=== PATIENT | male | born 1950 | race African-American/Black ===

== ENCOUNTER 2019-10-11 09:20 | Outpatient (CLI) | payer MEDICARE, SELFPAY ==
--- NOTE | ~2019-10-11 | XR_ITS ---
XR finger 3rd LT min 2V 10/11/2019 10:20 INDICATION: Arthritis of the left middle finger PROCEDURE: 4 views left third finger COMPARISON: No prior studies for comparison. FINDINGS: Fracture, dislocation or subluxation is not identified. Osteopenia The soft tissues appear within normal limits. No foreign bodies are identified. IMPRESSION: 1: NO ACUTE BONE OR JOINT ABNORMALITY IDENTIFIED. Reviewed, dictated and finalized at location A.
== END 2019-10-11 09:21 | disposition home or self-care (01) ==
PROVIDERS: PCP Internal Medicine; Visit Provider Plastic Surgery
DX: M19.042 Primary osteoarthritis, left hand (principal)
CPT/HCPCS: 73140

== ENCOUNTER 2020-04-21 06:39 | Outpatient (NON) | payer MEDICARE, SELFPAY ==
[2020-04-21 23:55] LABS: SARS-CoV-2 RNA PCR Negative
== END 2020-04-21 06:40 ==
LOC: ANHCOVIDDT 07:15
PROVIDERS: PCP Internal Medicine; Visit Provider Internal Medicine
DX: Z20.828 Contact with and (suspected) exposure to other viral communicable diseases (principal); R68.89 Other general symptoms and signs
CPT/HCPCS: 87635; C9803; U0003

== ENCOUNTER → 2020-10-08 02:20 | Outpatient (CLI) | payer MEDICARE, SELFPAY ==
[2020-10-08 19:11] LABS: SARS-CoV-2 RNA PCR Negative
== END ==
PROVIDERS: PCP Internal Medicine; Visit Provider Internal Medicine Critical Care Medicine
DX: Z01.812 Encounter for preprocedural laboratory examination (principal); Z20.822 Contact with and (suspected) exposure to COVID-19
CPT/HCPCS: C9803; U0003; U0005

== ENCOUNTER 2020-10-11 08:51 | Outpatient (CLI) | payer MEDICARE, SELFPAY ==
--- NOTE | 2020-10-22 12:38 | WPDSLEEPSTUD ---
Sleep Study Ordering Provider: Mook Fernandez DO Interpreting Physician: Antoinette Gray MD Sleep Study Type: CPAP Titration Height: 1.8 m Weight: 127.006 kg Body Mass Index: 39.0 Neck Circumference (inches): 17 [place]: 7 Reason for Sleep Study 08/24/2020 digital polysomnogram using [employer] PSG with [employer] software as part of a research study. Apnea-hypopnea index 22.4 using the 4% drop in saturation, desaturation to 84%, 50 minutes spent with a saturation below 90%, frequent periodic limb movements 61 per hour with limb movement arousal index of 12.5. He presents for a CPAP titration. Sleep History Anali Berrios is a 71 year old man who had a nocturnal polysomnogram on August 24, 2020 as part of a research study. He had positive results and was referred for a CPAP titration. No sleep questionnaire was available for review. His med list suggests that he has hypertension, diabetes, and hyperlipidemia. [facility] Past Medical History Medical History (Updated 09/24/20 @ 15:35 by Mook Fernandez DO) Skin lesion of left leg Trigger finger of left hand Surgical History Surgical History (Updated 08/05/19 @ 08:02 by Tammy Ledezma CMA) Hx of knee surgery Family History Family History Other Hypertension Malignant neoplasm of prostate Social History Social History Smoking status: Former smoker Second hand tobacco smoke exposure: No Smoking end date: 06/11/89 Alcohol intake: current Medications Home Medications Medication Instructions Recorded Confirmed Type amlodipine 10 mg tablet See Rx Instructions .ROUTE 02/23/20 08/19/20 Rx .COMPLEX #90 tablet atorvastatin 10 mg tablet See Rx Instructions .ROUTE 02/23/20 08/19/20 Rx .COMPLEX #90 tablet escitalopram oxalate 10 mg tablet See Rx Instructions .ROUTE 02/23/20 08/19/20 Rx .COMPLEX #90 tablet omeprazole 20 mg capsule,delayed See Rx Instructions .ROUTE 02/23/20 08/19/20 Rx release .COMPLEX #180 cap trandolapril 4 mg tablet See Rx Instructions .ROUTE 02/23/20 08/19/20 Rx .COMPLEX #90 tablet metformin 500 mg tablet 500 mg PO BID #180 tablet 08/19/20 08/19/20 Rx Sleep Procedure This test was performed using the [employer] multiple channel system including EOG, EEG, submental EMG, EKG, nasal and oral airflow using thermistors and nasal pressure sensors, chest and abdominal belts for body position data, and pulse oximetry. Video monitoring was also performed. The study was scored using CMS guidelines. The patient was started on CPAP using a large AirFit F 20 full face mask and heated humidifier. The initial pressure was 5 cm, increased due to air hunger. The patient was titrated on pressures including 7 cm, 8 cm, 9 cm, 10 cm, 11 cm, 12 cm and 12 cm with 3 of EPR. At the final pressure 12 cm with 3 EPR, He spent 47 minutes in bed, 18 minutes in REM, 24 minutes in non-REM. He had 2 hypopneas. The AHI was 2.8. Minimum saturation 88%. Sleep efficiency was 93%. He did not have supine REM at that pressure but it did appear to be excellent consolidated sleep with elimination of events. Sleep Architecture The recording time is 466 minutes. The sleep time is 347.5 minutes. The sleep efficiency is 74.6%. Sleep latency is 22.4 minutes. REM latency 81.5 minutes. He had 33 awakenings and spent 21.7% of the study awake after sleep onset, 96.1 minutes. Sleep architecture showed 3.5% stage 1 sleep, 44% stage 2 sleep, absence of stage 3 sleep and 30.9% stage REM consistent with REM rebound. He had only 4% of the baseline spent in REM. He spent 32.9% of this titration in the supine position. The remainder was nonsupine. The patient had improvement in sleep fragmentation towards the end of the study. Respiratory Analysis The apnea-hypopnea index is 1.6. He has 4 obstructive hypopneas in supine REM with a supine REM index of 2.3,
[2020-10-22 12:55] VITALS: BMI 39.0
== END 2020-10-11 08:52 | disposition home or self-care (01) ==
LOC: ANHCSM 08:51
PROVIDERS: PCP Internal Medicine; Visit Provider Internal Medicine
DX: G47.33 Obstructive sleep apnea (adult) (pediatric) (principal)
CPT/HCPCS: 95811

== ENCOUNTER → 2020-11-19 06:35 | Outpatient (CLI) | payer MEDICARE, SELFPAY ==
[2020-11-19 19:50] LABS: SARS-CoV-2 RNA PCR Negative
== END ==
PROVIDERS: PCP Internal Medicine; Visit Provider Internal Medicine
DX: Z20.822 Contact with and (suspected) exposure to COVID-19 (principal); R68.89 Other general symptoms and signs
CPT/HCPCS: C9803; U0003; U0005

== ENCOUNTER 2021-10-17 06:55 | Outpatient (CLI) | payer MEDICARE, SELFPAY ==
--- NOTE | ~2021-10-17 | CT_ITS ---
EXAMINATION: CT abdomen pelvis w con DATE: 10/17/2021 07:44 INDICATION: Prostate cancer TECHNIQUE: Computed tomography (CT) of the abdomen and pelvis was performed with 100 CC Omnipaque 300 intravenous contrast. Automated exposure control and iterative reconstruction technique were employe d. Exam dose: 1528.56 mGy-cm total exam DLP. COMPARISON: None. FINDINGS: There is mild dependent right lower lobe atelectasis. Normal heart size. No pericardial or pleural effusion. Small sliding hiatal hernia. The liver, spleen, pancreas, adrenal glands are unremarkable. Approximately 1.3 and 1.6 cm right renal cysts and 1.6 cm left renal cyst. No urinary tract calculus or hydroureteronephrosis. Normal caliber and mild atherosclerotic calcification of the abdominal aorta. No intraperitoneal or r etroperitoneal or pelvic mass lesion or adenopathy or ascites. Status post prostatectomy. There is approximately 12 x 18 mm indeterminate soft tissue density at the prostate bed at the consulting business developer ior inferior aspect of the base of the bladder on the left. Recommend comparison with any prior CT ex aminations and correlation with PSA. The prostate bed is otherwise unremarkable. No pelvic mass lesio n or adenopathy is noted otherwise. The urinary bladder is unremarkable. Inflatable penile prosthetic device is noted, with fluid reservoir at the right lower anterior pelvic wall anterior to the rectus sheath. Small [place] fat containing umbilical hernia. There are numerous diverticula of sigmoid, descending and transverse colon. There is mild pericolic f at soft tissue stranding in the sigmoid area; mild sigmoid diverticulitis is not excluded. No abscess is identified. Normal appendix. No bowel obstruction or intraperitoneal free air. Degenerative spurring of the lower thoracic spine. No suspicious osteolytic or osteoblastic lesions are noted. IMPRESSION: Status post prostatectomy Asymmetric 12 x 18 mm indeterminate soft tissue density is noted in the prostate bed at the left post erior inferior aspect of the urinary bladder; comparison with prior CT examinations is recommended, a s well as correlation with PSA Small sliding hiatal hernia Normal appendix Diverticulosis of left and right colon Cannot exclude mild sigmoid diverticulitis Reviewed, dictated and finalized at Location A. Reviewed, dictated and finalized at location B. IMPRESSION: Status post prostatectomy Asymmetric 12 x 18 mm indeterminate soft tissue density is noted in the prostat e bed at the left posterior inferior aspect of the urinary bladder; comparison with prior CT examinations is recommended, as well as correlation with PSA Small sliding hiatal hernia Normal appendix Diverticulosis of left and right colon Cannot exclude mild sigmoid diverticulitis
--- NOTE | ~2021-10-17 | NM_ITS ---
EXAMINATION: NM bone scan whole body DATE: 10/17/2021 13:55 INDICATION: Prostate cancer TECHNIQUE: 26.4 mCi Tc-99m HDP was administered intravenously. Delayed whole-body scintigrams were o btained. 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 Vertebral pattern of joint centered uptake at the bilateral mid feet, bilateral carpi, bilateral acromioclavicular and right sternoclavicular joint s. Additional mild disc centered uptake at the left side of T7-T8 with corresponding mild degenerativ e endplate change at this location on the CT images. No other suspicious bone lesions to suggest meta static disease. IMPRESSION: 1. No evident osseous metastatic disease. Reviewed, dictated and finalized at location A.
[2021-10-17 07:35] LABS: Estimated Glomerular Filt Rate > 60
== END 2021-10-17 06:56 | disposition home or self-care (01) ==
PROVIDERS: PCP Internal Medicine; Visit Provider Urology
DX: C61 Malignant neoplasm of prostate (principal); Z90.79 Acquired absence of other genital organ(s); K44.9 Diaphragmatic hernia without obstruction or gangrene; K57.90 Diverticulosis of intestine, part unspecified, without perforation or abscess without bleeding
CPT/HCPCS: 74177; 78306; A9561; Q9967

== ENCOUNTER 2021-11-05 09:56 | Inpatient (IN) | payer MEDICARE, SELFPAY ==
[2021-11-05] VITALS (15 sets, daily range): BP systolic 127–156; BP diastolic 64–118; PULSE 88–101; RESP 18–22; TEMP 36.4–37.1; O2SAT 87–97
--- NOTE | ~2021-11-05 | XR_ITS ---
XR chest 2V DATE: 11/07/2021 10:43 INDICATION: Shortness of breath TECHNIQUE: AP and lateral views COMPARISON: 11/05/2021 portable AP chest FINDINGS: Heart size is borderline. Is aortic arch calcification and mild unfolding. No hilar or medi astinal enlargement. No pulmonary infiltrate or consolidation, pleural effusion or pulmonary vascular congestion or pneumo thorax. Diffuse osteopenia. IMPRESSION: Borderline heart size Aortic atherosclerosis No active pulmonary disease Reviewed, dictated and finalized at location A.
--- NOTE | ~2021-11-05 | XR_ITS ---
XR chest 1V portable DATE: 11/05/2021 10:22 INDICATION: Shortness of breath. Low oxygen saturation. Cough. History of hypertension. TECHNIQUE: Portable upright AP view on 11/05/2021 1019 hours COMPARISON: None FINDINGS: This is a limited single portable apical lordotic AP view. There is mild infiltrate or atelectasis in the left mid and lower lung zones and right lung base. Heart size is not optimally evaluated on AP projection because of magnification. There is aortic arch calcification. Osteopenia. IMPRESSION: Mild infiltrate or atelectasis in left mid and lower lung zones and right lung base Reviewed, dictated and finalized at location A.
--- NOTE | 2021-11-05 10:02 | ECG_ITS ---
Measurements Intervals [place] Rate: 84 P: 12 RI: 138 QRS: 31 QRSD: 94 T: 63 QT: 389 QTc: 460 Interpretive Statements SINUS RHYTHM WITH SINUS ARRHYTHMIA BASELINE ARTIFACT- I, II, III, AVR, AVL, AVF, V1-V6 NORMAL ECG Electronically Signed On 11-05-2021 15:58:40 CDT by Vivek Lopez D.O.
--- NOTE | 2021-11-05 10:15 | ED.SOB ---
HPI - SOB/Dyspnea General Chief Complaint: Shortness of Breath/Dyspnea Stated Complaint: dyspnea Time Seen by Provider: 11/05/21 10:04 History of Present Illness HPI Narrative: Patient is a 71-year-old male with a history of diabetes, high blood pressure, hyperlipidemia, here for evaluation of shortness of breath over the past 3 days. Patient states his symptoms began with a mild cough, loss of taste/smell, and congestion, which have progressed in severity over the past week. His has similar symptoms at home. States he woke up this morning feeling short of breath whenever he he was up and moving around, in addition to lightheadedness. He presented to an urgent care facility, was found to be hypoxic in the mid 80s, and was sent here for evaluation. His saturations improved after nebulizer treatment. Denies chest pain, leg swelling, abdominal pain, vomiting. Does note chills, denies fevers. Is vaccinated against COVID. Related Data Allergies Allergy/AdvReac Type Severity Reaction Status Date / Time No Known Allergies Allergy Verified 09/09/21 10:18 Review of Systems Review of Systems: Gen.: Denies fevers or chills Eyes: Denies eye pain or visual change ENT: Denies congestion Respiratory: Denies shortness of breath or cough CV: Denies chest pain or palpitations GI: Denies abdominal pain nausea, emesis or diarrhea denies burning, urgency, frequency or hematuria Musculoskeletal: Denies back pain or muscle pain Neuro: Denies numbness, tingling, weakness or focal weakness Skin: Denies rash Except as documented, all other systems reviewed and negative [facility] Past Medical History Medical History Skin lesion of left leg Trigger finger of left hand Surgical History Surgical History Hx of knee surgery Family History Family History Other Hypertension Malignant neoplasm of prostate Social History Social History (Updated 09/09/21 @ 10:20 by Katharina Cody) Smoking packs per day: 1 Smoking cigarettes per day: 20.0 Years smoked: 20 Smoking pack-years: 20.00 Smoking status: Former smoker Tobacco type: cigarettes Second hand tobacco smoke exposure: No Smoking end date: 06/11/89 Alcohol intake: former Substance use: never Substance use type: does not use Spiritual care concerns: No Exam Narrative: APPEARANCE: Patient receiving nebulizing treatment during exam. Head: normocephalic and atraumatic. EYES: PERRLA/EOMI, conjunctivae clear NOSE: Large amount of nasal drainage EARS: External ear normal in appearance THROAT: Oropharynx is clear. Mucous membranes are moist. NECK: Supple. No adenopathy, no masses. RESPIRATORY: Decreased breath sounds throughout. Airway patent, respirations nonlabored. No rales, rhonchi, wheezing. CARDIOVASCULAR: Regular rate and rhythm without murmurs, rubs, or gallops. ABDOMINAL: Normoactive bowel sounds. Soft, nontender, nondistended. No rebound tenderness or guarding. MUSCULOSKELETAL: Extremities are warm and well-perfused. Moves all extremities well. No edema. NEURO: Normal speech. No focal neurologic deficits. SKIN: Skin is warm and dry. No rashes. PSYCHIATRIC: Normal affect/mood. Course Course Emergency Course: Discussed case with hospitalist, who agrees with plan for admission. Vital Signs Vital signs: Vital Signs Temperature 98.1 F 11/05/21 09:58 Pulse Rate 98 11/05/21 09:58 Respiratory Rate 20 11/05/21 09:58 Blood Pressure 139/118 H 11/05/21 09:58 Pulse Oximetry 97 11/05/21 09:58 Temperature 98.7 F 11/05/21 14:00 Pulse Rate 101 H 11/05/21 16:32 Respiratory Rate 18 11/05/21 16:32 Blood Pressure 156/79 H 11/05/21 14:00 Pulse Oximetry 92 11/05/21 16:25 Oxygen Delivery Nasal Cannula 11/05/21 16:25 Oxygen Flow Rate 3 11/05/21
[2021-11-05 10:40] LABS: Hematocrit 36.4 % (42.0-52.0); Hemoglobin 11.7 g/dL (14.0-18.0); Mean Corpuscular HGB Conc 32.1 g/dl (32-36); Mean Corpuscular Hemoglobin 28.3 pg (26-34); Mean Corpuscular Volume 88.1 fl (80-100); Mean Platelet Volume 9.4 fl (7.4-10.4); Platelet Count Result 314 k/mm3 (150-375); Red Blood Count 4.13 M/mm3 (4.6-6.20); Red Cell Distribution Width 15.1 % (11.5-14.5); White Blood Count 9.1 K/mm3 (4.5-10.0)
[2021-11-05 10:46] LABS: Alanine Aminotransferase 22 U/L (6-50); Albumin Level 3.8 g/dL (3.5-5.1); Alkaline Phosphatase 108 U/L (38-126); Anion Gap 8 mmol/L (8-16); Aspartate Amino Transferase 24 U/L (17-59); Bilirubin,Total 0.5 mg/dL (0.2-1.3); Blood Urea Nitrogen 10 mg/dL (9-20); Calcium 8.6 mg/dL (8.4-10.2); Carbon Dioxide 31 mmol/L (22-30); Chloride 101 mmol/L (98-107); Estimated CRCL calculation 124 ml/min; Estimated Glomerular Filt Rate > 60; Glucose 160 mg/dL (65-110); Potassium 3.9 mmol/L (3.4-5.0); Sodium 140 mmol/L (137-145)
[2021-11-05 10:58] LABS: NT Pro B Type Natriuretic Pept 159 pg/mL (5-100); Troponin I < 0.012 ng/mL (0.000-0.034)
[2021-11-05 11:13] LABS: Band Neutrophils Percent 16 % (0-6); Lymphocytes Absolute Manual 1.72 K/mm3 (1.1-4.5); Monocytes Absolute Manual 1.54 K/mm3 (0.1-0.90); Monocytes Percent Manual 17 % (3-9); Neutrophils Absolute Manual 5.82 K/mm3 (1.3-6.7); Neutrophils Percent Manual 48 % (46-73); Platelet Estimate Adequate (Adequate); Total Cells Counted 100
[2021-11-05 11:25] LABS: Influenza A QL RT-PCR Negative (Negative); Influenza B QL RT-PCR Negative (Negative); SARS-CoV-2 RNA PCR Negative
[2021-11-05] MEDS: ALBUTEROL SULFATE NEB 2.5 MG/3 ML INH INHALATION (16:18)
[2021-11-05 16:26] LABS: Glucose Point of Care 143 mg/dl (65-105)
[2021-11-05] MEDS: ENOXAPARIN 40 MG/0.4 ML SYRINGE SUB-Q (17:53)
[2021-11-05] MEDS: TOBRAMYCIN SULFATE 0.3% OPHTH SOLN 5 ML 1 DROP EACH EYE ×2 (17:53→20:27)
[2021-11-05] MEDS: methylPREDNISolone SOD SUCC 125 MG VIAL 60 MG IV PUSH (17:53)
[2021-11-05] MEDS: ALBUTEROL SULFATE NEB 2.5 MG/0.5 ML INH ×2 (19:39→23:24)
--- NOTE | 2021-11-05 20:13 | PM.IMHP ---
H&P: HPI History of Present Illness Date/Time: Patient was placed observation status for expected length of stay less than 23 hours for management, will plan to re-evaluate tomorrow for improvement. 11/05/21 20:13 Chief Complaint: Shortness of breath Narrative: Mr. Berrios is a 69-year-old gentleman who presented emergency room via EMS with complaints of shortness of breath and cough. Patient states on Sunday of this week he had a slight sore throat he noticed a cough. Patient states that the sore throat did go away quite quickly, but the cough continued. Patient states at 1st he had no sputum production but then he began having a green sputum production. Patient states over the last few days he has had dyspnea on exertion with walking short distances. Patient states he is unsure if he had a fever at home, but he he did have episodes of sweating. Patient states he never actually checked his temperature. Patient denies any chest pain, lightheadedness, dizziness, syncopal, or near syncopal episodes. States this morning he felt even more short of breath and he went to an urgent care where they checked his vital signs and his O2 saturations were in 80s. Patient was then sent to the emergency room for further evaluation. Upon evaluation emergency room patient did receive 1 nebulizer treatment is saturations continued to be in 80s. Patient was then placed on oxygen at 3 L per nasal cannula. Patient's O2 saturations then did improve with oxygen. Patient underwent chest x-ray that shows mild infiltrate or atelectasis in the left mid and lower lung zones and right lung base. Patient has a known history of diabetes mellitus, hypertension, dyslipidemia, and acid reflux. Patient states he has been taking all medications at home without any difficulty. Review of Systems Review of Systems: A 12 point review of systems was completed patient all pertinent positive and negative per HPI the remainder are unremarkable. [facility]LY [facility] Past Medical History Medical History (Updated 11/05/21 @ 20:20 by Dolores Ayala APRN) Essential (primary) hypertension Hyperlipidemia, unspecified (02/02/15) Skin lesion of left leg Trigger finger of left hand Type 2 diabetes mellitus without complications Surgical History Surgical History Hx of knee surgery Family History Family History Other Hypertension Malignant neoplasm of prostate Social History Social History (Updated 09/09/21 @ 10:20 by Katharina Cody) Smoking packs per day: 1 Smoking cigarettes per day: 20.0 Years smoked: 20 Smoking pack-years: 20.00 Smoking status: Former smoker Tobacco type: cigarettes Second hand tobacco smoke exposure: No Smoking end date: 06/11/89 Alcohol intake: former Substance use: never Substance use type: does not use Spiritual care concerns: No Meds Home Medications and Allergies Home Medications Medication Instructions Recorded Confirmed Type tobramycin 0.3 % eye drops 1 drp EACH EYE Q4H #5 mL 05/16/21 11/05/21 Rx amlodipine 10 mg tablet See Rx Instructions .Route 08/29/21 11/05/21 Rx .COMPLEX #90 tabs atorvastatin 10 mg tablet See Rx Instructions .Route 08/29/21 11/05/21 Rx .COMPLEX #90 tabs escitalopram oxalate 10 mg tablet See Rx Instructions .Route 08/29/21 11/05/21 Rx .COMPLEX #90 tabs omeprazole 20 mg capsule,delayed See Rx Instructions .Route 08/29/21 11/05/21 Rx release .COMPLEX #180 caps tamsulosin 0.4 mg capsule (Flomax) 0.4 mg PO QHS #90 caps 08/29/21 11/05/21 Rx valsartan 160 mg tablet 160 mg PO DAILY #90 tabs 09/09/21 11/05/21 Rx metformin 1,000 mg tablet 1,000 mg PO BIDWMEAL #180 tabs 09/12/21 11/05/21 Rx Allergies Allergy/AdvReac Type Severity Reaction Status Date / Time No Known Allergies Allergy Verified 09/09/21 10:18 Vital Signs Vital Signs - 24 hr 11/05/21 09:
[2021-11-05] MEDS: PANTOPRAZOLE 40 MG TABLET PO (20:25)
[2021-11-05] MEDS: TAMSULOSIN HCL 0.4 MG CAPSULE PO (20:25)
[2021-11-05] MEDS: ACETAMINOPHEN 325 MG TABLET 650 MG PO (20:26)
[2021-11-05 20:52] LABS: Glucose Point of Care 170 mg/dl (65-105)
[2021-11-05] MEDS: traZODone HCL 25 MG TABLET PO (22:10)
[2021-11-06] VITALS (18 sets, daily range): BP systolic 130–151; BP diastolic 69–77; PULSE 79–112; RESP 16–26; TEMP 35.9–36.6; O2SAT 91–96
[2021-11-06] MEDS: TOBRAMYCIN SULFATE 0.3% OPHTH SOLN 5 ML 1 DROP EACH EYE ×6 (00:04→20:07)
[2021-11-06] MEDS: methylPREDNISolone SOD SUCC 125 MG VIAL 60 MG IV PUSH ×4 (00:04→17:34)
[2021-11-06] MEDS: ALBUTEROL SULFATE NEB 2.5 MG/3 ML INH INHALATION ×4 (03:33→17:04)
[2021-11-06 07:46] LABS: Glucose Point of Care 218 mg/dl (65-105)
[2021-11-06 08:35] LABS: Hematocrit 39.1 % (42.0-52.0); Hemoglobin 12.4 g/dL (14.0-18.0); Mean Corpuscular HGB Conc 31.7 g/dl (32-36); Mean Corpuscular Hemoglobin 27.9 pg (26-34); Mean Corpuscular Volume 87.9 fl (80-100); Mean Platelet Volume 9.7 fl (7.4-10.4); Platelet Count Result 366 k/mm3 (150-375); Red Blood Count 4.45 M/mm3 (4.6-6.20); Red Cell Distribution Width 15.2 % (11.5-14.5); White Blood Count 7.5 K/mm3 (4.5-10.0)
[2021-11-06] MEDS: ATORVASTATIN 10 MG TABLET BY MOUTH (08:42)
[2021-11-06] MEDS: ESCITALOPRAM OXALATE 10 MG TABLET BY MOUTH (08:42)
[2021-11-06] MEDS: amLODIPine BESYLATE 5 MG TABLET 10 MG BY MOUTH (08:42)
[2021-11-06] MEDS: VALSARTAN 160 MG TABLET PO (08:42)
[2021-11-06] MEDS: PANTOPRAZOLE 40 MG TABLET PO ×2 (08:42→20:06)
[2021-11-06] MEDS: INSULIN ASPART (*BKC) 100 UNITS/ML SUB-Q ×3 (08:43→16:40)
[2021-11-06 08:45] LABS: Alanine Aminotransferase 25 U/L (6-50); Albumin Level 3.8 g/dL (3.5-5.1); Alkaline Phosphatase 146 U/L (38-126); Anion Gap 10 mmol/L (8-16); Aspartate Amino Transferase 21 U/L (17-59); Bilirubin,Total 0.4 mg/dL (0.2-1.3); Blood Urea Nitrogen 13 mg/dL (9-20); Calcium 8.8 mg/dL (8.4-10.2); Carbon Dioxide 29 mmol/L (22-30); Chloride 102 mmol/L (98-107); Estimated CRCL calculation 124 ml/min; Estimated Glomerular Filt Rate > 60; Glucose 238 mg/dL (65-110); Magnesium 2.4 mg/dL (1.6-2.3); Sodium 141 mmol/L (137-145)
--- NOTE | 2021-11-06 09:30 | PM.IMPN ---
Progress Note: A&P Assessment and Plan (1) Pneumonia: Code(s): J18.9 - Pneumonia, unspecified organism Status: Acute Assessment and Plan: Complaints of shortness of breath Saturations noted to be in the 80s Supplement O2, wean to maintain saturations >90% Chest xray shows Mild infiltrate or atelectasis in left mid and lower lung zones and right lung base? Continue azithromycin and rocephin Neb treatments Solumedrol, decrease to 40mg IV Q12hr Chest xray in the am Sputum culture ordered (2) Essential (primary) hypertension: Code(s): I10 - Essential (primary) hypertension Status: Acute Assessment and Plan: Current BP 151/77 Continue home valsartan 160mg PO Daily, amlodipine 10mg PO Trend BP Adjust medications as indicated (3) Type 2 diabetes mellitus without complications: Code(s): E11.9 - Type 2 diabetes mellitus without complications Status: Acute Assessment and Plan: Glucose 238 A1c in the am Hold metformin for now insulin sliding scale Hypoglycemic protocol Accu-cheks AC/HS trend glucose adjust therapy as indicated (4) BPH (benign prostatic hyperplasia): Code(s): N40.0 - Benign prostatic hyperplasia without lower urinary tract symptoms Status: Acute Assessment and Plan: PSA is 9.7 from 10/04/21 Continue tamsulosin Trend urine output Bladder scan PRN Time Spent With Patient Time with patient: Greater than 35 minutes Subjective Date/time seen: 11/06/21 09:30 Interval history: 11/06/21 0930 Patient was lying in bed. Patient is very congested and stated that he is still having shortness of breath especially when walking. He does have a cough which he is producing a green thick sputum. He denies any chest pain, nausea, vomiting, dizziness, weakness, fatigue. Patient stated that this all started with a cold. And his main concern is that he wants to be able to walk without being short of breath. He has been able to walk to the bathroom however he did become short of breath. Oxygen has been titrated down he is currently on 2 L nasal cannula. 11/05/21? 20:13 Mr. Berrios is a 69-year-old gentleman who presented emergency room via EMS with complaints of shortness of breath and cough.? Patient states on Sunday of this week he had a slight sore throat he noticed a cough.? Patient states that the sore throat did go away quite quickly, but the cough continued.? Patient states at 1st he had no sputum production but then he began having a green sputum production.? Patient states over the last few days he has had dyspnea on exertion with walking short distances.? Patient states he is unsure if he had a fever at home, but he he did have episodes of sweating.? Patient states he never actually checked his temperature.? Patient denies any chest pain, lightheadedness, dizziness, syncopal, or near syncopal episodes.? States this morning he felt even more short of breath and he went to an urgent care where they checked his vital signs and his O2 saturations were in 80s.? Patient was then sent to the emergency room for further evaluation.? Upon evaluation emergency room patient did receive 1 nebulizer treatment is saturations continued to be in 80s.? Patient was then placed on oxygen at 3 L per nasal cannula.? Patient's O2 saturations then did improve with oxygen.? Patient underwent chest x-ray that shows mild infiltrate or atelectasis in the left mid and lower lung zones and right lung base. Patient has a known history of diabetes mellitus, hypertension, dyslipidemia, and acid reflux.? Patient states he has been taking all medications at home without any difficulty. Review of Systems Review of Systems: All systems reviewed & are unremarkable except as noted in HPI and below Exam Const: General: cooperative, no acute distress, well developed, alert, awake, ill appearing and tired appearin
[2021-11-06 10:44] LABS: Band Neutrophils Percent 7 % (0-6); Lymphocytes Absolute Manual 1.27 K/mm3 (1.1-4.5); Monocytes Percent Manual 4 % (3-9); Neutrophils Absolute Manual 5.92 K/mm3 (1.3-6.7); Neutrophils Percent Manual 72 % (46-73); Platelet Estimate Adequate (Adequate); Total Cells Counted 100
[2021-11-06 11:37] LABS: Glucose Point of Care 232 mg/dl (65-105)
[2021-11-06 16:25] LABS: Glucose Point of Care 212 mg/dl (65-105)
[2021-11-06] MEDS: BENZOCAINE/MENTHOL (*BKC) 18 EA LOZENGE 1 LOZENGE PO ×2 (17:33→22:19)
[2021-11-06] MEDS: ENOXAPARIN 40 MG/0.4 ML SYRINGE SUB-Q (17:34)
[2021-11-06] MEDS: ALBUTEROL SULFATE NEB 2.5 MG/0.5 ML INH ×2 (19:48→23:05)
[2021-11-06] MEDS: TAMSULOSIN HCL 0.4 MG CAPSULE PO (20:06)
[2021-11-06] MEDS: traZODone HCL 25 MG TABLET PO (20:06)
[2021-11-06 20:57] LABS: Glucose Point of Care 282 mg/dl (65-105)
[2021-11-07] VITALS (17 sets, daily range): BP systolic 136–150; BP diastolic 60–75; PULSE 82–100; RESP 17–22; TEMP 36.2–36.8; O2SAT 93–97
[2021-11-07] MEDS: methylPREDNISolone SOD SUCC 125 MG VIAL 60 MG IV PUSH ×2 (00:02→05:11)
[2021-11-07] MEDS: TOBRAMYCIN SULFATE 0.3% OPHTH SOLN 5 ML 1 DROP EACH EYE ×6 (00:03→20:29)
[2021-11-07] MEDS: ACETAMINOPHEN 325 MG TABLET 650 MG PO ×2 (00:05→20:34)
[2021-11-07] MEDS: ALBUTEROL SULFATE NEB 2.5 MG/3 ML INH INHALATION ×5 (03:17→20:05)
[2021-11-07 05:03] LABS: Hematocrit 33.8 % (42.0-52.0); Hemoglobin 10.5 g/dL (14.0-18.0); Mean Corpuscular HGB Conc 31.1 g/dl (32-36); Mean Corpuscular Hemoglobin 27.6 pg (26-34); Mean Corpuscular Volume 88.9 fl (80-100); Mean Platelet Volume 9.5 fl (7.4-10.4); Platelet Count Result 358 k/mm3 (150-375); Red Cell Distribution Width 15.2 % (11.5-14.5); White Blood Count 11.7 K/mm3 (4.5-10.0)
[2021-11-07 05:14] LABS: Alanine Aminotransferase 23 U/L (6-50); Albumin Level 3.5 g/dL (3.5-5.1); Alkaline Phosphatase 118 U/L (38-126); Anion Gap 7 mmol/L (8-16); Aspartate Amino Transferase 21 U/L (17-59); Bilirubin,Total 0.2 mg/dL (0.2-1.3); Blood Urea Nitrogen 17 mg/dL (9-20); Calcium 8.4 mg/dL (8.4-10.2); Carbon Dioxide 31 mmol/L (22-30); Chloride 101 mmol/L (98-107); Estimated CRCL calculation 108 ml/min; Estimated Glomerular Filt Rate > 60; Glucose 294 mg/dL (65-110); Magnesium 2.2 mg/dL (1.6-2.3); Potassium 3.7 mmol/L (3.4-5.0); Sodium 139 mmol/L (137-145)
[2021-11-07 05:35] LABS: Anisocytosis 1+ (NORMAL); Band Neutrophils Percent 6 % (0-6); Hemoglobin A1C 6.7 % (<5.7); Lymphocytes Absolute Manual 1.28 K/mm3 (1.1-4.5); Monocytes Absolute Manual 0.81 K/mm3 (0.1-0.90); Monocytes Percent Manual 7 % (3-9); Neutrophils Absolute Manual 9.59 K/mm3 (1.3-6.7); Neutrophils Percent Manual 76 % (46-73); Ovalocytes 1+ (NORMAL); Platelet Estimate Adequate (Adequate); Total Cells Counted 100
[2021-11-07 07:28] LABS: Glucose Point of Care 238 mg/dl (65-105)
[2021-11-07] MEDS: ATORVASTATIN 10 MG TABLET BY MOUTH (08:04)
[2021-11-07] MEDS: amLODIPine BESYLATE 5 MG TABLET 10 MG BY MOUTH (08:04)
[2021-11-07] MEDS: VALSARTAN 160 MG TABLET PO (08:04)
[2021-11-07] MEDS: PANTOPRAZOLE 40 MG TABLET PO ×2 (08:04→20:29)
[2021-11-07] MEDS: AMOXICILLIN/CLAVULANATE K 875-125 MG TAB 1 TABLET PO ×2 (08:04→20:28)
[2021-11-07] MEDS: ESCITALOPRAM OXALATE 10 MG TABLET BY MOUTH (08:04)
[2021-11-07] MEDS: INSULIN ASPART (*BKC) 100 UNITS/ML SUB-Q ×2 (08:06→11:30)
--- NOTE | 2021-11-07 08:30 | PM.IMPN ---
Progress Note: A&P Assessment and Plan (1) Pneumonia: Code(s): J18.9 - Pneumonia, unspecified organism Status: Acute Assessment and Plan: Complaints of shortness of breath Saturations noted to be in the 80s Supplement O2, wean to maintain saturations >90% Chest xray shows Mild infiltrate or atelectasis in left mid and lower lung zones and right lung base? azithromycin and Rocephin, changed to PO amoxicillin/clauv Neb treatments Chest xray awaiting read Sputum culture did exhibit many white blood cells Guaifenesin and lozenges Also added some Claritin D for congestion (2) Essential (primary) hypertension: Code(s): I10 - Essential (primary) hypertension Status: Acute Assessment and Plan: Current BP 150/60 Continue home valsartan 160mg PO Daily, amlodipine 10mg PO Trend BP Adjust medications as indicated (3) Type 2 diabetes mellitus without complications: Code(s): E11.9 - Type 2 diabetes mellitus without complications Status: Acute Assessment and Plan: Glucose 294 A1c in the am Hold metformin for now insulin sliding scale Hypoglycemic protocol Accu-cheks AC/HS trend glucose adjust therapy as indicated (4) BPH (benign prostatic hyperplasia): Code(s): N40.0 - Benign prostatic hyperplasia without lower urinary tract symptoms Status: Acute Assessment and Plan: PSA is 9.7 from 10/04/21 Continue tamsulosin Trend urine output Bladder scan PRN Time Spent With Patient Time with patient: Greater than 35 minutes Subjective Date/time seen: 11/07/21829 Interval history: 11/07/21829 Patient was doing ok. Still on one liter of oxygen. He did state concern about not getting better. He did state that she is still getting short of breath with activity. He does seem to have 1+ pitting edema in the bilateral lower extremities. He denies any chest pain, weakness, fatigue, headache, or urinary difficulties. He does still have a cough, and is still very congested. 11/06/21929 Patient was lying in bed. Patient is very congested and stated that he is still having shortness of breath especially when walking. He does have a cough which he is producing a green thick sputum. He denies any chest pain, nausea, vomiting, dizziness, weakness, fatigue. Patient stated that this all started with a cold. And his main concern is that he wants to be able to walk without being short of breath. He has been able to walk to the bathroom however he did become short of breath. Oxygen has been titrated down he is currently on 2 L nasal cannula. 11/05/21? 20:13 Mr. Berrios is a 69-year-old gentleman who presented emergency room via EMS with complaints of shortness of breath and cough.? Patient states on Sunday of this week he had a slight sore throat he noticed a cough.? Patient states that the sore throat did go away quite quickly, but the cough continued.? Patient states at he had no sputum production but then he began having a green sputum production.? Patient states over the last few days he has had dyspnea on exertion with walking short distances.? Patient states he is unsure if he had a fever at home, but he he did have episodes of sweating.? Patient states he never actually checked his temperature.? Patient denies any chest pain, lightheadedness, dizziness, syncopal, or near syncopal episodes.? States this morning he felt even more short of breath and he went to an urgent care where they checked his vital signs and his O2 saturations were in 80s.? Patient was then sent to the emergency room for further evaluation.? Upon evaluation emergency room patient did receive 1 nebulizer treatment is saturations continued to be in 80s.? Patient was then placed on oxygen at 3 L per nasal cannula.? Patient's O2 saturations then did improve with oxygen.? Patient underwent chest x-ray that shows mild infiltr
[2021-11-07] MEDS: guaiFENesin 600 MG/DEXTROMETHORPHAN 30 MG SR TAB 12 HR 1 TAB PO ×2 (09:44→20:28)
[2021-11-07 11:29] LABS: Glucose Point of Care 229 mg/dl (65-105)
[2021-11-07] MEDS: LORATADINE/PSEUDOEPHEDRINE (*CRX) 10/240 MG TABLET ER 24 HR 1 TAB PO (12:08)
[2021-11-07] MEDS: FUROSEMIDE INJ 40 MG/4 ML VIAL 20 MG IV PUSH (13:25)
[2021-11-07 16:28] LABS: Glucose Point of Care 191 mg/dl (65-105)
[2021-11-07] MEDS: ENOXAPARIN 40 MG/0.4 ML SYRINGE SUB-Q (17:04)
[2021-11-07] MEDS: TAMSULOSIN HCL 0.4 MG CAPSULE PO (20:29)
[2021-11-07] MEDS: traZODone HCL 25 MG TABLET PO (20:29)
[2021-11-07] MEDS: BENZOCAINE/MENTHOL (*BKC) 18 EA LOZENGE 1 LOZENGE PO (20:31)
[2021-11-07 20:42] LABS: Glucose Point of Care 190 mg/dl (65-105)
[2021-11-08] VITALS (9 sets, daily range): BP systolic 130; BP diastolic 74; PULSE 75–84; RESP 18–20; TEMP 36.6; O2SAT 92–97
[2021-11-08] MEDS: ALBUTEROL SULFATE NEB 2.5 MG/0.5 ML INH (00:33)
[2021-11-08] MEDS: ALBUTEROL SULFATE NEB 2.5 MG/3 ML INH INHALATION ×3 (00:34→07:40)
[2021-11-08 05:55] LABS: Basophils Percent Auto 0.3 % (0.2-1.2); Eosinophils Absolute Auto 0.3 K/mm3 (0-0.3); Eosinophils Percent Auto 2.4 % (0-4.4); Hematocrit 35.4 % (42.0-52.0); Immature Granulocyte Absolute 0.25 K/mm3 (0.00-0.031); Immature Granulocyte Percent A 1.8 % (0-0.5); Lymphocytes Absolute Auto 2.72 K/mm3 (0.9-3.2); Lymphocytes Percent Auto 19.8 % (18.3-44.2); Mean Corpuscular HGB Conc 31.1 g/dl (32-36); Mean Corpuscular Hemoglobin 27.4 pg (26-34); Mean Corpuscular Volume 88.3 fl (80-100); Mean Platelet Volume 9.3 fl (7.4-10.4); Monocytes Absolute Auto 1.5 K/mm3 (0.1-0.6); Monocytes Percent Auto 10.9 % (2.6-8.5); Neutrophils Absolute Auto 8.9 K/mm3 (1.3-6.7); Neutrophils Percent Auto 64.8 % (45.5-73.1); Platelet Count Result 385 k/mm3 (150-375); Red Blood Count 4.01 M/mm3 (4.6-6.20); Red Cell Distribution Width 15.4 % (11.5-14.5); White Blood Count 13.7 K/mm3 (4.5-10.0)
[2021-11-08 06:11] LABS: Alanine Aminotransferase 23 U/L (6-50); Albumin Level 3.2 g/dL (3.5-5.1); Alkaline Phosphatase 99 U/L (38-126); Anion Gap 4 mmol/L (8-16); Aspartate Amino Transferase 27 U/L (17-59); Bilirubin,Total 0.3 mg/dL (0.2-1.3); Blood Urea Nitrogen 19 mg/dL (9-20); Carbon Dioxide 32 mmol/L (22-30); Chloride 101 mmol/L (98-107); Estimated CRCL calculation 124 ml/min; Estimated Glomerular Filt Rate > 60; Glucose 169 mg/dL (65-110); Magnesium 2.2 mg/dL (1.6-2.3); Potassium 3.7 mmol/L (3.4-5.0); Sodium 137 mmol/L (137-145)
[2021-11-08 06:37] LABS: Anisocytosis 1+ (NORMAL); Ovalocytes 1+ (NORMAL)
--- NOTE | 2021-11-08 07:10 | P.DS_ITS ---
DS: Admitting Diagnosis Discharge Date 11/08/21 1600 Admitting Diagnosis Shortness of breath. DS: Discharge Diagnosis Discharge Diagnosis (1) Pneumonia: Code(s): J18.9 - Pneumonia, unspecified organism Status: Acute Assessment and Plan: * WBC 13.7, patient is afebrile. * On PO amoxicillin/clauv, will add PO Azithromycin due to comorbidities. * Complaints of shortness of breath * Weaned off supplemental O2 at this time. * initial chest xray shows Mild infiltrate or atelectasis in left mid and lower lung zones and right lung base? * Neb treatments * 11/07 Chest xray showed no active pulmonary disease, borderline heart size, aortic atherosclerosis. * Sputum culture showed mixed bacterial dinh, many white blood cells. * Guaifenesin and lozenges * Also added some Claritin D for congestion (2) Essential (primary) hypertension: Code(s): I10 - Essential (primary) hypertension Status: Acute Assessment and Plan: * Current BP 150/61 * Continue home valsartan 160mg PO Daily, amlodipine 10mg PO * Trend BP * Adjust medications as indicated (3) Type 2 diabetes mellitus without complications: Code(s): E11.9 - Type 2 diabetes mellitus without complications Status: Acute Assessment and Plan: * Glucose 169 * A1c 6.7 * insulin sliding scale * Hypoglycemic protocol * Accu-cheks AC/HS * trend glucose * Discharge on home meds. (4) BPH (benign prostatic hyperplasia): Code(s): N40.0 - Benign prostatic hyperplasia without lower urinary tract symptoms Status: Acute Assessment and Plan: * PSA is 9.7 from 10/04/21 * Continue tamsulosin * Bladder scan PRN DS: Summary Hospital Course Reason for hospitalization: Pneumonia Hospital Course: See above for full hospital course Status at Discharge Cognitive/behavioral status at discharge: progressing to baseline Time Spent with Patient Time attestation: Total time spent providing and/or coordinating discharge services: 35 min Exam Narrative: Constitutional: Patient is well-nourished in no acute distress. Patient is alert and oriented x3 HEENT: Moist mucous membranes. No scleral icterus. No lymphadenopathy. Neck: No carotid bruits noted no JVD noted Lungs: Lungs are coarse to auscultation bilaterally with inspiratory and expiratory wheeze noted. Cardiovascular: Apical pulse is regular rate and rhythm. S1-S2 noted, no S3 or S4 noted. No gallops, murmurs, or rubs noted. Abdomen: Soft, round, and nontender. No palpable masses. Extremities: No edema. Nontender. Skin: No rashes or lesions. Warm and dry. Skin is intact. Neurological: No focal neurological deficits. Cranial nerves II-XII grossly intact. Psychiatric: Cooperative, appropriate mood, and affect DS: Data Data Completed and Pending Labs on day of discharge: Labs from last 24 hours 11/08/21 11/08/21 11/07/21 05:42 05:42 20:35 WBC 13.7 H RBC 4.01 L Hgb 11.0 L Hct 35.4 L MCV 88.3 MCH 27.4 MCHC 31.1 L RDW 15.4 H Plt Count 385 H MPV 9.3 Immature Gran % (Auto) 1.8 H Neut % (Auto) 64.8 Lymph % (Auto) 19.8 [place] % (Auto) 10.9 H Eos % (Auto) 2.4 Baso % (Auto) 0.3 Lymp
--- NOTE | 2021-11-08 07:10 | PM.DS ---
DS: Admitting Diagnosis Discharge Date 11/08/21 1600 Admitting Diagnosis Shortness of breath. DS: Discharge Diagnosis Discharge Diagnosis (1) Pneumonia: Code(s): J18.9 - Pneumonia, unspecified organism Status: Acute Assessment and Plan: WBC 13.7, patient is afebrile. On PO amoxicillin/clauv, will add PO Azithromycin due to comorbidities. Complaints of shortness of breath Weaned off supplemental O2 at this time. initial chest xray shows Mild infiltrate or atelectasis in left mid and lower lung zones and right lung base? Neb treatments 11/07 Chest xray showed no active pulmonary disease, borderline heart size, aortic atherosclerosis. Sputum culture showed mixed bacterial dinh, many white blood cells. Guaifenesin and lozenges Also added some Claritin D for congestion (2) Essential (primary) hypertension: Code(s): I10 - Essential (primary) hypertension Status: Acute Assessment and Plan: Current BP 150/61 Continue home valsartan 160mg PO Daily, amlodipine 10mg PO Trend BP Adjust medications as indicated (3) Type 2 diabetes mellitus without complications: Code(s): E11.9 - Type 2 diabetes mellitus without complications Status: Acute Assessment and Plan: Glucose 169 A1c 6.7 insulin sliding scale Hypoglycemic protocol Accu-cheks AC/HS trend glucose Discharge on home meds. (4) BPH (benign prostatic hyperplasia): Code(s): N40.0 - Benign prostatic hyperplasia without lower urinary tract symptoms Status: Acute Assessment and Plan: PSA is 9.7 from 10/04/21 Continue tamsulosin Bladder scan PRN DS: Summary Hospital Course Reason for hospitalization: Pneumonia Hospital Course: See above for full hospital course Status at Discharge Cognitive/behavioral status at discharge: progressing to baseline Time Spent with Patient Time attestation: Total time spent providing and/or coordinating discharge services: 35 min Exam Narrative: Constitutional: Patient is well-nourished in no acute distress. Patient is alert and oriented x3 HEENT: Moist mucous membranes. No scleral icterus. No lymphadenopathy. Neck: No carotid bruits noted no JVD noted Lungs: Lungs are coarse to auscultation bilaterally with inspiratory and expiratory wheeze noted. Cardiovascular: Apical pulse is regular rate and rhythm. S1-S2 noted, no S3 or S4 noted. No gallops, murmurs, or rubs noted. Abdomen: Soft, round, and nontender. No palpable masses. Extremities: No edema. Nontender. Skin: No rashes or lesions. Warm and dry. Skin is intact. Neurological: No focal neurological deficits. Cranial nerves II-XII grossly intact. Psychiatric: Cooperative, appropriate mood, and affect DS: Data Data Completed and Pending Labs on day of discharge: Labs from last 24 hours 11/08/21 11/08/21 11/07/21 05:42 05:42 20:35 WBC 13.7 H RBC 4.01 L Hgb 11.0 L Hct 35.4 L MCV 88.3 MCH 27.4 MCHC 31.1 L RDW 15.4 H Plt Count 385 H MPV 9.3 Immature Gran % (Auto) 1.8 H Neut % (Auto) 64.8 Lymph % (Auto) 19.8 [place] % (Auto) 10.9 H Eos % (Auto) 2.4 Baso % (Auto) 0.3 Lymph # (Auto) 2.72 [place] # (Auto) 1.5 H Eos # (Auto) 0.3 Baso # (Auto) 0.0 Abs Immat Gran (auto) 0.25 H Absolute Neuts (auto) 8.9 H Absolute Nucleated RBC 0.0 Nucleated RBC % 0.0 Platelet Estimate Slightly increased Anisocytosis 1+ Ovalocytes 1+ Sodium 137 Potassium 3.7 Chloride 101 Carbon Dioxide 32 H Anion Gap 4 L BUN 19 Creatinine 0.60 L Estim Creat Clear Calc 124 Estimated GFR > 60 Glucose 169 H POC Capillary Glucose 190 H Calcium 8.0 L Magnesium 2.2 Total Bilirubin 0.3 AST 27 ALT 23 Alkaline Phosphatase 99 Total Protein 7.0 Albumin 3.2 L 11/07/21 11/07/21 11/07/21 16:18 11:25 07:24 WBC R
--- NOTE | 2021-11-08 07:22 | PM.IMPN ---
Progress Note: A&P Assessment and Plan (1) Pneumonia: Code(s): J18.9 - Pneumonia, unspecified organism Status: Acute Assessment and Plan: WBC 13.7, increased from 11 yesterday, patient is afebrile. On PO amoxicillin/clauv, will add PO Azithromycin due to comorbidities. Complaints of shortness of breath Weaned off supplemental O2 at this time. initial chest xray shows Mild infiltrate or atelectasis in left mid and lower lung zones and right lung base? Neb treatments 11/07 Chest xray showed no active pulmonary disease, borderline heart size, aortic atherosclerosis. Sputum culture showed mixed bacterial dinh, many white blood cells. Guaifenesin and lozenges Also added some Claritin D for congestion (2) Essential (primary) hypertension: Code(s): I10 - Essential (primary) hypertension Status: Acute Assessment and Plan: Current BP 130/74 Continue home valsartan 160mg PO Daily, amlodipine 10mg PO Trend BP Adjust medications as indicated (3) Type 2 diabetes mellitus without complications: Code(s): E11.9 - Type 2 diabetes mellitus without complications Status: Acute Assessment and Plan: Glucose 169 A1c 6.7 insulin sliding scale Hypoglycemic protocol Accu-cheks AC/HS Trend glucose Discharge on home meds. (4) BPH (benign prostatic hyperplasia): Code(s): N40.0 - Benign prostatic hyperplasia without lower urinary tract symptoms Status: Acute Assessment and Plan: PSA is 9.7 from 10/04/21 Continue tamsulosin Bladder scan PRN Subjective Date/time seen: 11/08/21 07:22 Interval history: 11/06/21 0930 Patient was lying in bed. Patient is very congested and stated that he is still having shortness of breath especially when walking. He does have a cough which he is producing a green thick sputum. He denies any chest pain, nausea, vomiting, dizziness, weakness, fatigue. Patient stated that this all started with a cold. And his main concern is that he wants to be able to walk without being short of breath. He has been able to walk to the bathroom however he did become short of breath. Oxygen has been titrated down he is currently on 2 L nasal cannula. 11/05/21? 20:13 Mr. Berrios is a 69-year-old gentleman who presented emergency room via EMS with complaints of shortness of breath and cough.? Patient states on Sunday of this week he had a slight sore throat he noticed a cough.? Patient states that the sore throat did go away quite quickly, but the cough continued.? Patient states at 1st he had no sputum production but then he began having a green sputum production.? Patient states over the last few days he has had dyspnea on exertion with walking short distances.? Patient states he is unsure if he had a fever at home, but he he did have episodes of sweating.? Patient states he never actually checked his temperature.? Patient denies any chest pain, lightheadedness, dizziness, syncopal, or near syncopal episodes.? States this morning he felt even more short of breath and he went to an urgent care where they checked his vital signs and his O2 saturations were in 80s.? Patient was then sent to the emergency room for further evaluation.? Upon evaluation emergency room patient did receive 1 nebulizer treatment is saturations continued to be in 80s.? Patient was then placed on oxygen at 3 L per nasal cannula.? Patient's O2 saturations then did improve with oxygen.? Patient underwent chest x-ray that shows mild infiltrate or atelectasis in the left mid and lower lung zones and right lung base. Patient has a known history of diabetes mellitus, hypertension, dyslipidemia, and acid reflux.? Patient states he has been taking all medications at home without any difficulty. Exam Narrative: Constitutional: Patient is well-nourished in no acute distress. Patient is alert and oriented x3 HEENT: Moist mucous membrane
[2021-11-08 07:34] LABS: Glucose Point of Care 134 mg/dl (65-105)
[2021-11-08] MEDS: ESCITALOPRAM OXALATE 10 MG TABLET BY MOUTH (08:24)
[2021-11-08] MEDS: amLODIPine BESYLATE 5 MG TABLET 10 MG BY MOUTH (08:24)
[2021-11-08] MEDS: VALSARTAN 160 MG TABLET PO (08:24)
[2021-11-08] MEDS: AZITHROMYCIN 250 MG TABLET PO (08:24)
[2021-11-08] MEDS: AMOXICILLIN/CLAVULANATE K 875-125 MG TAB 1 TABLET PO (08:24)
[2021-11-08] MEDS: ATORVASTATIN 10 MG TABLET BY MOUTH (08:24)
[2021-11-08] MEDS: LORATADINE/PSEUDOEPHEDRINE (*CRX) 10/240 MG TABLET ER 24 HR 1 TAB PO (08:24)
[2021-11-08] MEDS: PANTOPRAZOLE 40 MG TABLET PO (08:24)
[2021-11-08] MEDS: TOBRAMYCIN SULFATE 0.3% OPHTH SOLN 5 ML 1 DROP EACH EYE (08:28)
[2021-11-08] MEDS: guaiFENesin 600 MG/DEXTROMETHORPHAN 30 MG SR TAB 12 HR 1 TAB PO (08:56)
[2021-11-08 11:11] LABS: Glucose Point of Care 104 mg/dl (65-105)
--- NOTE | 2021-11-08 11:36 | P.DS_ITS ---
DS: Admitting Diagnosis Discharge Date 11/08/21 1600 <Kiya Dunn PA-C - Last Filed: 11/08/21 11:53> Admitting Diagnosis Shortness of Breath <Kiya Dunn PA-C - Last Filed: 11/08/21 11:53> DS: Discharge Diagnosis Discharge Diagnosis (1) Pneumonia: Code(s): J18.9 - Pneumonia, unspecified organism <Kiya Dunn PA-C - Last Filed: 11/08/21 11:53> Status: Acute <Kiya Dunn PA-C - Last Filed: 11/08/21 11:53> Assessment and Plan: * WBC 13.7, increased from 11 yesterday, however, patient is afebrile, remains on room air, has improved shortness of breath, and remains clinically improved from yesterday. Patient is very eager to go home and states he is feeling much better. * On PO amoxicillin/clauv, will add PO Azithromycin due to comorbidities. * Initial chest xray shows Mild infiltrate or atelectasis in left mid and lower lung zones and right lung base? * 11/07 Chest xray showed no active pulmonary disease, borderline heart size, aortic atherosclerosis. * Sputum culture showed mixed bacterial dinh, many white blood cells. * Guaifenesin along with claritin D for congestion. <Kiya Dunn PA-C - Last Filed: 11/08/21 11:53> (2) Essential (primary) hypertension: Code(s): I10 - Essential (primary) hypertension <Kiya Dunn PA-C - Last Filed: 11/08/21 11:53> Status: Acute <Kiya Dunn PA-C - Last Filed: 11/08/21 11:53> Assessment and Plan: * Current BP 130/74 * Continue home valsartan 160mg PO Daily, amlodipine 10mg PO <Kiya Dunn PA-C - Last Filed: 11/08/21 11:53> (3) Type 2 diabetes mellitus without complications: Code(s): E11.9 - Type 2 diabetes mellitus without complications <Kiya Dunn PA-C - Last Filed: 11/08/21 11:53> Status: Acute <Kiya WallKIARA osborn - Last Filed: 11/08/21 11:53> Assessment and Plan: * Glucose 169 * A1c 6.7 * insulin sliding scale * Hypoglycemic protocol * Accu-cheks AC/HS * Trend glucose * Discharge on home meds. <Kiya WallKIARA osborn - Last Filed: 11/08/21 11:53> (4) BPH (benign prostatic hyperplasia): Code(s): N40.0 - Benign prostatic hyperplasia without lower urinary tract symptoms <Kiya WallKIARA osborn - Last Filed: 11/08/21 11:53> Status: Acute <Kiya Cano LINDA DunnPrakashJeromy - Last Filed: 11/08/21 11:53> Assessment and Plan: * PSA is 9.7 from 10/04/21 * Continue tamsulosin * Bladder scan PRN * Patient has no complaints today. <Kiya Cano KIARA Dunn - Last Filed: 11/08/21 11:53> DS: Summary Hospital Course Reason for hospitalization: Pneumonia <Kiya WallKIARA osborn - Last Filed: 11/08/21 11:53> Hospital Course: See above for full hospital course <Kiya Cano KIARA Dunn - Last Filed: 11/08/21 11:53> Status at Discharge Cognitive/behavioral status at discharge: Patient is progressing back to baseline <Kiya Cano KIARA Dunn - Last Filed: 11/08/21 11:53> Time Spent with Patient Time attestation: Total time spent providing and/or coordinating discharge services: 35 minutes <Kiya GaldamezJanell Dunn PA-C - Last Filed: 11/08/21 11:53> Exam Narrative: GENERAL APPEARANCE: Alert and oriented x 3, in no apparent distress. HEENT: PERRL, EOMI. Sclerae anicteric. Moist mucous membranes. NECK: Supple. No JVD or obvious carotid bruits. RESPIRATORY: Respirations are nonlabored. Scattered rhonchi and crackles in bilateral lower lungs. No wheezing.
--- NOTE | 2021-11-08 11:36 | PM.DS ---
DS: Admitting Diagnosis Discharge Date 11/08/21 1600 <Kiya Dunn PA-C - Last Filed: 11/08/21 11:53> Admitting Diagnosis Shortness of Breath <Kiya Dunn PA-C - Last Filed: 11/08/21 11:53> DS: Discharge Diagnosis Discharge Diagnosis (1) Pneumonia: Code(s): J18.9 - Pneumonia, unspecified organism <Kiya Dunn PA-C - Last Filed: 11/08/21 11:53> Status: Acute <Kiya Dunn PA-C - Last Filed: 11/08/21 11:53> Assessment and Plan: WBC 13.7, increased from 11 yesterday, however, patient is afebrile, remains on room air, has improved shortness of breath, and remains clinically improved from yesterday. Patient is very eager to go home and states he is feeling much better. On PO amoxicillin/clauv, will add PO Azithromycin due to comorbidities. Initial chest xray shows Mild infiltrate or atelectasis in left mid and lower lung zones and right lung base? 11/07 Chest xray showed no active pulmonary disease, borderline heart size, aortic atherosclerosis. Sputum culture showed mixed bacterial dinh, many white blood cells. Guaifenesin along with claritin D for congestion. <Kiya Dunn PA-C - Last Filed: 11/08/21 11:53> (2) Essential (primary) hypertension: Code(s): I10 - Essential (primary) hypertension <Kiya Dunn PA-C - Last Filed: 11/08/21 11:53> Status: Acute <Kiya Dunn PA-C - Last Filed: 11/08/21 11:53> Assessment and Plan: Current BP 130/74 Continue home valsartan 160mg PO Daily, amlodipine 10mg PO <Kiya Dunn PA-C - Last Filed: 11/08/21 11:53> (3) Type 2 diabetes mellitus without complications: Code(s): E11.9 - Type 2 diabetes mellitus without complications <Kiya Dunn PA-C - Last Filed: 11/08/21 11:53> Status: Acute <Kiya Dunn PA-C - Last Filed: 11/08/21 11:53> Assessment and Plan: Glucose 169 A1c 6.7 insulin sliding scale Hypoglycemic protocol Accu-cheks AC/HS Trend glucose Discharge on home meds. <Kiya Cano KIARA Dunn - Last Filed: 11/08/21 11:53> (4) BPH (benign prostatic hyperplasia): Code(s): N40.0 - Benign prostatic hyperplasia without lower urinary tract symptoms <Kiya Cano KIARA Dunn - Last Filed: 11/08/21 11:53> Status: Acute <Kiya Cano KIARA Dunn - Last Filed: 11/08/21 11:53> Assessment and Plan: PSA is 9.7 from 10/04/21 Continue tamsulosin Bladder scan PRN Patient has no complaints today. <iKya Cano KIARA Dunn - Last Filed: 11/08/21 11:53> DS: Summary Hospital Course Reason for hospitalization: Pneumonia <Kiya Cano KIARA Dunn - Last Filed: 11/08/21 11:53> Hospital Course: See above for full hospital course <Kiya Cano KIARA Dunn - Last Filed: 11/08/21 11:53> Status at Discharge Cognitive/behavioral status at discharge: Patient is progressing back to baseline <Kiya GaldamezJanell Dunn PA-C - Last Filed: 11/08/21 11:53> Time Spent with Patient Time attestation: Total time spent providing and/or coordinating discharge services: 35 minutes <Kiya GaldamezJanell Dunn PA-C - Last Filed: 11/08/21 11:53> Exam Narrative: GENERAL APPEARANCE: Alert and oriented x 3, in no apparent distress. HEENT: PERRL, EOMI. Sclerae anicteric. Moist mucous membranes. NECK: Supple. No JVD or obvious carotid bruits. RESPIRATORY: Respirations are nonlabored. Scattered rhonchi and crackles in bilateral lower lungs. No wheezing. CARDIOVASCULAR: Regular rate and rhythm with normal S1-S2. No murmurs, gallops, or rubs. GASTROINTESTINAL: Soft, flat, and benign. No mass, tenderness, guarding, or rebound. No organomegaly or hernia. Bowel sounds are present. SKIN: Warm, dry, well perfused. Good turgor. No lesions, nodules, or rashes noted. EXTREMITIES: No cyanosis, clubbing, or edema. Radial and pedal pulses intact. NEUROLOGICAL: Alert. Cranial nerves 2-12 are corey
== END 2021-11-08 12:48 | disposition home or self-care (01) | DRG 195 ==
LOC: ANHED 10:44 → ANH2MED 14:28
PROVIDERS: Nurse Practitioner; Physician Assistant; Admitting Provider Family Medicine; Emergency Provider Emergency Medicine; PCP Internal Medicine; Visit Provider Student in an Organized Health Care Education/Training Program
DX: J18.9 Pneumonia, unspecified organism (principal); E11.9 Type 2 diabetes mellitus without complications; I10 Essential (primary) hypertension; E78.5 Hyperlipidemia, unspecified; Z20.822 Contact with and (suspected) exposure to COVID-19; Z87.891 Personal history of nicotine dependence; K21.9 Gastro-esophageal reflux disease without esophagitis; Z79.84 Long term (current) use of oral hypoglycemic drugs; N40.0 Benign prostatic hyperplasia without lower urinary tract symptoms; Z79.4 Long term (current) use of insulin
CPT/HCPCS: 36415; 71045; 71046; 80053; 82948; 83036; 83735; 83880; 84484; 85025; 87070; 87205; 87502; 93005; 94640; 96365; 96366; 96367; 96375; 96376; 99285; A9270; C9803; G0378; J0456; J0696; J1650; J1815; J1940; J2930; U0003; U0005

== ENCOUNTER 2021-11-29 13:46 | Outpatient (CLI) | payer MEDICARE, SELFPAY ==
--- NOTE | ~2021-11-29 | PE_ITS ---
EXAMINATION: PET_PETPSMAST_PT DATE: 09/12/2021 17:18 INDICATION: Prostate cancer TECHNIQUE: 10.19 mCi of pipflufolastat F-18 (18-F-DCFPyL) was administered i.v. Low dose computed bib ography (CT) images were acquired from the base of the brain to the proximal thighs for attenuation c orrection and anatomic localization. Total DAP was 1369.2 mGycm Positron emission tomography (PET) im ages were acquired in the same distribution beginning 71 minutes after injection. COMPARISON: None FINDINGS: Head/neck: Typical pattern of symmetric physiologic increased activity in the lacrimal, parotid and submandibula r glands as well as along the mucosa of the nasal cavity, oropharynx, nasopharynx and hypopharynx mos t notable bilaterally at the fossa of Rosenmuller. No pathologically enlarged cervical lymphadenopath y or suspicious foci of increased uptake in the visualized head or neck. Chest: Respiratory motion which limits assessment of fine pulmonary parenchymal detail. Mild discoid atelect asis in the right lower lobe. No suspicious pulmonary nodules, pneumonia or other pulmonary infiltrat es or pleural effusion. Heart size is normal. No pericardial effusion. Thoracic aorta is normal in ca liber. Small sliding-type hiatal hernia. Small amount of likely salivary activity along the esophagus . No pathologically enlarged lymphadenopathy or abnormal PSMA avid lesions in the thorax. Abdomen/pelvis/proximal thighs: Physiologic renal accumulation and excretion of FDG activity in the kidneys, bladder and along portio ns of ureters. Additional prominent increased uptake throughout the liver and spleen without radiolog ic correlate or dominant PSMA avid lesion. The gallbladder, pancreas, and bilateral adrenal glands ar e normal. Mild uptake scattered throughout the segments of primarily proximal small bowel without rad iologic correlate, also likely physiologic. Additional status post prostatectomy. Excreted activity a long the proximal penile urethra which appears dilated beginning at the point of artificial urinary s phincter. Small focus of skin contamination at the suprapubic region. No other abnormal foci of incre ased PSMA uptake or pathologically enlarged lymphadenopathy in the abdomen, pelvis or proximal thighs . Musculoskeletal: Moderate cervical and thoracic spondylosis and mild lumbar spondylosis. No suspicious lytic, blastic or PSMA abdomen bone lesions identified. IMPRESSION: 1. No evident metastatic disease 2. Status post prostatectomy and artificial urinary sector placement. Reviewed, dictated and finalized at location B.
== END 2021-11-29 13:47 | disposition home or self-care (01) ==
PROVIDERS: PCP Internal Medicine; Visit Provider Urology
DX: C61 Malignant neoplasm of prostate (principal); Z90.79 Acquired absence of other genital organ(s); Z96.0 Presence of urogenital implants
CPT/HCPCS: 78815; A9595

== ENCOUNTER 2022-01-04 07:58 | Outpatient (CLI) | payer MEDICARE, SELFPAY ==
[2022-01-04 08:30] LABS: Estimated Glomerular Filt Rate > 60
== END 2022-01-04 07:59 | disposition home or self-care (01) ==
PROVIDERS: PCP Internal Medicine; Visit Provider Radiology Radiation Oncology
DX: C61 Malignant neoplasm of prostate (principal)
CPT/HCPCS: 99199

== ENCOUNTER 2022-01-12 15:34 | Outpatient (CLI) | payer MEDICARE, SELFPAY ==
--- NOTE | ~2022-01-12 | MR_ITS ---
EXAMINATION: MR pelvis wo/w con DATE: 01/12/2022 16:48 INDICATION: Malignant neoplasm of prostate. TECHNIQUE: Magnetic resonance imaging (MRI) of the pelvis was performed without and with 20 mL MultiH ance intravenous contrast. COMPARISON: PET CT 11/29/2021, CT abdomen and pelvis 10/17/21 FINDINGS: There are changes of prostatectomy. In the prostatectomy bed on the left, there is a 1.7 x 1.2 cm sof t tissue mass with 11 mm cystic component. A penile prosthesis is noted. There are no pathologically enlarged lymph nodes. IMPRESSION: 1. 1.7 x 1.2 cm soft tissue mass in the prostatectomy bed on the left suspicious for recurrent neopla sm. Reviewed, dictated and finalized at location A. IMPRESSION: 1. 1.7 x 1.2 cm soft tissue mass in the prostatectomy bed on the left suspiciou s for recurrent neoplasm.
== END 2022-01-12 15:35 | disposition home or self-care (01) ==
PROVIDERS: PCP Internal Medicine; Visit Provider Radiology Radiation Oncology
DX: C61 Malignant neoplasm of prostate (principal)
CPT/HCPCS: 72197; A9577

== ENCOUNTER 2022-09-22 00:42 | Day surgery (SDC) | payer MEDICARE, SELFPAY ==
[2022-09-11 14:39] VITALS: BMI 38.0
[2022-09-22 12:14] LABS: Glucose Point of Care 124 mg/dl (65-105)
[2022-09-22 12:15] VITALS: BP 134/74; PULSE 77; RESP 18; TEMP 36.2; O2SAT 95
--- NOTE | 2022-09-22 12:18 | WPDANESEPPF ---
Anes - Initial Pre Proc Eval Procedure: Operation Date: 09/22/22 13:30 Proposed Procedures p Colonoscopy - Jayden De La Rosa MD Date/Time: 09/22/22 12:18 Surgeon: Jayden De La Rosa MD Pre Op Diagnosis: hx of colon polyps Patient Data Age: 72 Gender: M Height: 1.83 m Weight: 128.5 kg Last Vital Signs Temp 97.1 F L 09/22/22 12:15 Pulse 77 09/22/22 12:15 Resp 18 09/22/22 12:15 BP 134/74 09/22/22 12:15 Pulse Ox 95 09/22/22 12:15 O2 Del Method Room Air 09/22/22 12:15 Allergies Allergy/AdvReac Type Severity Reaction Status Date / Time No Known Allergies Allergy Verified 09/22/22 12:14 Home Medications Medication Instructions Recorded Confirmed Type metformin 1,000 mg tablet 1,000 mg PO BIDWMEAL #180 tabs 09/12/21 09/11/22 Rx valsartan 160 mg tablet 160 mg PO DAILY #90 tabs 02/27/22 09/11/22 Rx tamsulosin 0.4 mg capsule (Flomax) 0.4 mg PO QHS #90 caps 08/23/22 09/11/22 Rx amlodipine 10 mg tablet 10 mg PO DAILY #90 tabs 09/04/22 09/11/22 Rx atorvastatin 10 mg tablet 10 mg PO DAILY #90 tabs 09/04/22 09/11/22 Rx escitalopram oxalate 10 mg tablet 10 mg PO DAILY #90 tabs 09/04/22 09/11/22 Rx omeprazole 20 mg capsule,delayed 20 mg PO DAILY #90 caps 09/04/22 09/11/22 Rx release Laboratory Tests 09/22/22 12:12 POC Capillary Glucose 124 mg/dl H mg/dl (65-105) Patient hx anesthesia problems: none Family hx anesthesia problems: none Results Review: All pre-operative results and documents have been reviewed as part of the pre-operative evaluation. [facility] Past Medical History Medical History Essential (primary) hypertension Hyperlipidemia, unspecified (02/02/15) Skin lesion of left leg Trigger finger of left hand Type 2 diabetes mellitus without complications Surgical History Surgical History Hx of knee surgery Family History Family History Other Hypertension Malignant neoplasm of prostate Social History Social History (Updated 04/07/22 @ 08:42 by Arlyn Rodrigues CMA) Smoking packs per day: 1 Smoking cigarettes per day: 20.0 Years smoked: 20 Smoking pack-years: 20.00 Smoking status: Current every day smoker Tobacco type: cigarettes Second hand tobacco smoke exposure: No Smoking end date: 06/11/89 Alcohol intake: former Alcohol use details: 10 YEARS Substance use: never Substance use type: does not use Lack of Transportation: No Lack of Food: Never True Current Housing: I Have Housing Concerned About Future Housing: No Difficulty Paying Gas/Electric Bills: No Difficulty Paying for Meds: YES Education: Decline to Answer Difficulty w/ Childcare or Family Care: No Living arrangements: with family Spiritual care concerns: No Anes - Eval Final PreProcedure Day of Procedure 09/22/22 12:18 Patient weight: obese Heart: regular rate and rhythm Lungs: clear to auscultation Airway: Mallampati scale class III Neurological: alert and oriented Last oral intake: >/= 8 hours ASA classification: III Emergent: no Anesthetic plan: proceed Anesthesia type and monitoring: general GIVS and standard monitoring Results Review: All pre-operative results and documents have been reviewed as part of the pre-operative evaluation. Informed Consent: The patient's anesthetic plan and its attendant risks and benefits were discussed with the patient/family/POA. Questions were solicited and answers provided to the satisfaction of the patient/family/POA.
[2022-09-22] MEDS: LACTATED RINGERS 1,000 ML 150 ML IV CONT (12:28)
--- NOTE | 2022-09-22 12:42 | PM.HPGS ---
History of Present Illness History of Present Illness Consent: Risks, benefits, and alternatives have been discussed and questions answered. Patient agrees to proceed with procedure. Chief complaint: hx of colon polyps Narrative: Anali Berrios is a 72 year old male with colon polyps in 2017 Review of Systems Constitutional: Constitutional: Denies headache(s) and Denies weakness Eyes: Eyes: Denies blurry vision ENT: Reports Normal hearing present, Denies headache(s) and Denies neck pain Cardiovascular: Cardiovascular: Denies chest pain and Denies dyspnea Respiratory: Respiratory: Denies dyspnea Gastrointestinal: Gastrointestinal: Reports no additional gastrointestinal complaints Genitourinary: Genitourinary: Denies dysuria Musculoskeletal: Musculoskeletal: Denies neck pain Integumentary/Breasts: Skin/Breast: Denies dry skin Neurologic: Reports Normal hearing present, Denies headache(s) and Denies weakness Psychiatric: Psychiatric: Denies anxiety Endocrine: Endocrine: Denies change in body appearance Hematologic/Lymphatic: Hematologic/Lymphatic: Denies easy bleeding Allergic/Immunologic: Allergic/Immunologic: Denies urticaria PMFSH Past Medical History Medical History Essential (primary) hypertension Hyperlipidemia, unspecified (02/02/15) Skin lesion of left leg Trigger finger of left hand Type 2 diabetes mellitus without complications Surgical History Surgical History Hx of knee surgery Family History Family History Other Hypertension Malignant neoplasm of prostate Social History Social History (Updated 04/07/22 @ 08:42 by Arlyn Rodrigues CMA) Smoking packs per day: 1 Smoking cigarettes per day: 20.0 Years smoked: 20 Smoking pack-years: 20.00 Smoking status: Current every day smoker Tobacco type: cigarettes Second hand tobacco smoke exposure: No Smoking end date: 06/11/89 Alcohol intake: former Alcohol use details: 10 YEARS Substance use: never Substance use type: does not use Lack of Transportation: No Lack of Food: Never True Current Housing: I Have Housing Concerned About Future Housing: No Difficulty Paying Gas/Electric Bills: No Difficulty Paying for Meds: YES Education: Decline to Answer Difficulty w/ Childcare or Family Care: No Living arrangements: with family Spiritual care concerns: No Meds Home Medications and Allergies Home Medications Medication Instructions Recorded Confirmed Type metformin 1,000 mg tablet 1,000 mg PO BIDWMEAL #180 tabs 09/12/21 09/11/22 Rx valsartan 160 mg tablet 160 mg PO DAILY #90 tabs 02/27/22 09/11/22 Rx tamsulosin 0.4 mg capsule (Flomax) 0.4 mg PO QHS #90 caps 08/23/22 09/11/22 Rx amlodipine 10 mg tablet 10 mg PO DAILY #90 tabs 09/04/22 09/11/22 Rx atorvastatin 10 mg tablet 10 mg PO DAILY #90 tabs 09/04/22 09/11/22 Rx escitalopram oxalate 10 mg tablet 10 mg PO DAILY #90 tabs 09/04/22 09/11/22 Rx omeprazole 20 mg capsule,delayed 20 mg PO DAILY #90 caps 09/04/22 09/11/22 Rx release Allergies Allergy/AdvReac Type Severity Reaction Status Date / Time No Known Allergies Allergy Verified 09/22/22 12:14 Vital Signs Vital Signs - 24 hr 09/22/22 12:15 Temperature 97.1 F L Pulse Rate 77 Respiratory Rate 18 Blood Pressure 134/74 Pulse Oximetry 95 Oxygen Delivery Room Air Exam Const: General: comfortable and no acute distress HENMT: Face/Nose/Sinus: Normal nares present Eyes: General: appearance normal, both eyes and all related structures Neck: Neck: no JVD Resp: Auscultation: clear to auscultation bilaterally Cardio: Rate: regular rate Rhythm: regular rhythm GI: Inspection: non-distended GI Palp: Yes Soft to palpation Skin: General skin exam: normal color Neuro: General: gait norm
[2022-09-22 13:04] VITALS: BP 126/82; PULSE 66; RESP 16; O2SAT 96
[2022-09-22 13:14] VITALS: BP 132/86; PULSE 64; RESP 18; O2SAT 98
[2022-09-22 13:24] VITALS: BP 128/84; PULSE 62; RESP 18; O2SAT 98
== END 2022-09-22 13:34 | disposition home or self-care (01) ==
PROVIDERS: PCP Internal Medicine; Visit Provider Internal Medicine Gastroenterology
PROC: 0DJD8ZZ Inspection of Lower Intestinal Tract, Via Natural or Artificial Opening Endoscopic (ICD-10-PCS; CPT 45378; principal; 2022-09-22 13:30)
DX: Z12.11 Encounter for screening for malignant neoplasm of colon (principal); K57.30 Diverticulosis of large intestine without perforation or abscess without bleeding; K64.8 Other hemorrhoids; Z86.010 Personal history of colon polyps; I10 Essential (primary) hypertension; E78.5 Hyperlipidemia, unspecified; E11.9 Type 2 diabetes mellitus without complications; F17.210 Nicotine dependence, cigarettes, uncomplicated; Z79.84 Long term (current) use of oral hypoglycemic drugs
CPT/HCPCS: G0105; 82948; J2704; J7120

== ENCOUNTER → 2022-11-29 08:13 | Outpatient (CLI) | payer MEDICARE, SELFPAY ==
--- NOTE | ~2022-11-29 | MR_ITS ---
MRI of the left wrist Technique: Coronal T1 weighted and proton density fat sat images, and axial and sagittal proton-densi ty and proton-density fat-sat images were acquired. Clinical History: Ganglion cyst Findings: Scapholunate ligament is intact, and there is no widening of the scapholunate interval. Rob otriquetral ligament is intact. Mild degenerative change of the TFCC, without evidence for perforatio n. 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 There is prominent bony productive change at this j oint as well. There are mild to moderate degenerative changes at the STT articulations. There is foca l high-grade degenerative change at the radial scaphoid articulation with subchondral cystic change f ocally at the distal radius. There is a 5 mm ganglion cyst along the dorsal aspect of the hand at the region of the dorsal aspect of the capitate. There is mild to moderate degenerative change focally o f the second carpometacarpal joint. Flexor and extensor tendons are intact. At the volar aspect of the wrist, predominantly superficial t o the flexor carpi radialis tendon, there is a 1.9 x 1.1 x 1.9 cm fat attenuation mass, consistent wi th lipoma. IMPRESSION: 1.9 x 1.1 x 1.9 cm lipoma at the volar aspect of the wrist at the area of clinical concern, as detail ed above. Severe osteoarthritis of the first carpometacarpal joint, as detailed above. Additional degenerative changes, as above, including at the STT articulations, radial scaphoid articulation, and second CMC j oint. 5 mm ganglion cyst dorsal to the capitate. Reviewed, dictated and finalized at location . IMPRESSION: 1.9 x 1.1 x 1.9 cm lipoma at the volar aspect of the wrist at the area of clini aramis concern, as detailed above. Severe osteoarthritis of the first carpometacarpal joint, as detailed above. Ad ditional degenerative changes, as above, including at the STT articulations, ra dial scaphoid articulation, and second CMC joint. 5 mm ganglion cyst dorsal to the capitate.
== END ==
PROVIDERS: PCP Family Medicine; Visit Provider Orthopaedic Surgery
DX: M67.432 Ganglion, left wrist (principal); M19.032 Primary osteoarthritis, left wrist
CPT/HCPCS: 73221

== ENCOUNTER 2023-01-03 08:17 | Outpatient (CLI) | payer MEDICARE, SELFPAY ==
[2023-01-03 08:59] LABS: Anion Gap 6 mmol/L (8-16); Blood Urea Nitrogen 14 mg/dL (9-20); Calcium 8.6 mg/dL (8.4-10.2); Carbon Dioxide 31 mmol/L (22-30); Chloride 101 mmol/L (98-107); Estimated Glomerular Filt Rate > 60; Glucose 119 mg/dL (65-110); Potassium 3.5 mmol/L (3.4-5.0); Sodium 138 mmol/L (137-145)
== END 2023-01-03 08:18 | disposition home or self-care (01) ==
LOC: ANHSURGERY 08:21
PROVIDERS: Anesthesiology; PCP Family Medicine; Visit Provider Orthopaedic Surgery
DX: Z01.812 Encounter for preprocedural laboratory examination (principal); E11.9 Type 2 diabetes mellitus without complications
CPT/HCPCS: 36415; 80048

== ENCOUNTER 2023-01-08 00:19 | Day surgery (SDC) | payer MEDICARE, SELFPAY ==
--- NOTE | 2023-01-01 09:49 | PC.NURSE ---
Report to the Outpatient Waiting Room, entrance under the green pavilion located off [facility], at time __1000 on date ___01/08/23____. Planned Procedure Time: _1200 . Time changes happen often and if your time is changed the preop area will call you the afternoon before. - You and your visitor will be asked to self-screen and do not enter if you have any COVID symptoms. - A mask is optional within the hospital at this time. Patients may have clear liquids (water, carbonated beverages, clear teas, apple juice) until 3 hours prior to surgery with a maximum of 20 ounces. - No food from midnight until time of surgery - Infants may have breast milk until 4 hours before surgery, infant formula 6 hours prior to surgery. - Children will be allowed to drink immediately following surgery. If applicable, please bring a bottle or sippy cup to assist with drinking. Juice, water, soda, and popsicles are readily available. For infants on formula, please bring formula the day of surgery. Pacifiers are allowed. Take the following medications with a SIP of water the morning of surgery: ___NONE DO NOT STOP ANY OF YOUR OTHER PRESCRIPTION MEDICATIONS PRIOR TO SURGERY ?EXCEPT THE FOLLOWING Medications to discontinue per physician ____MULTI VITAMIN__HOLD 3 DAYS PRE OP.LAST DOSE 01/04/23 Please no make-up, nail albanian, hairspray, perfume, deodorant, or body powder the day of surgery. No jewelry (including any body piercings) or valuables the day of surgery, leave them at home. Please take a shower or bath the night before, or the morning of, surgery with an antibacterial soap. Wear comfortable, loose fitting clothing. Children are encouraged to wear pajamas. - Jewelry must be removed prior to entering the operating room. Rings and piercings that are not removed may be cut off. - The hospital will not accept responsibility for valuables. - Please leave all valuables, including medications, at home the day of surgery. If you are going home after surgery, a licensed emergency vehicle driver must drive you home. - NO public transportation without another adult if you receive anesthesia. - We recommend that an adult stay with you for 24 hours following discharge. - We also recommend that you do not drive, make important decision, drink alcoholic beverages, or take any drugs that were not prescribed by your health care provider for at least 24 hours after your discharge time. For Pediatric surgeries, we recommend two adults accompany the child home. Follow any additional instructions given to you from your surgeon. If you or anyone in your household have experienced Covid symptoms in the past week, please notify your surgeon or the nurse liaison at the phone number below for possible testing. Telephone instructions given to __PATIENT and asked if any additional questions and then verbalized understanding. Patient advised to call surgeon office or pre surgery nurse liaison [phone] if any additional questions.
[2023-01-01 09:58] VITALS: BMI 37.6
[2023-01-08] VITALS (9 sets, daily range): BP systolic 120–137; BP diastolic 71–73; PULSE 57–72; RESP 12–16; TEMP 36.4–36.6; O2SAT 92–100
--- NOTE | 2023-01-08 09:13 | WPDANESEPPF ---
Anes - Initial Pre Proc Eval Procedure: Operation Date: 01/08/23 12:00 Proposed Procedures p Excision Lipoma Left Wrist - Lukas Hurst MD Date/Time: 01/08/23 09:13 Surgeon: Lukas Hurst MD Pre Op Diagnosis: lipoma left wrist Patient Data Age: 72 Gender: M Height: 1.8 m Weight: 122.5 kg Allergies Allergy/AdvReac Type Severity Reaction Status Date / Time No Known Allergies Allergy Verified 01/08/23 10:24 Home Medications Medication Instructions Recorded Confirmed Type tamsulosin 0.4 mg capsule (Flomax) 0.4 mg PO QHS #90 caps 08/23/22 01/08/23 Rx amlodipine 10 mg tablet 10 mg PO DAILY #90 tabs 09/04/22 01/08/23 Rx atorvastatin 10 mg tablet 10 mg PO DAILY #90 tabs 09/04/22 01/08/23 Rx escitalopram oxalate 10 mg tablet 10 mg PO DAILY #90 tabs 09/04/22 01/08/23 Rx omeprazole 20 mg capsule,delayed 20 mg PO DAILY #90 caps 09/04/22 01/08/23 Rx release metformin 1,000 mg tablet 1,000 mg PO BIDWMEAL #180 tabs 10/23/22 01/08/23 Rx valsartan 160 mg tablet 160 mg PO DAILY #90 tabs 12/06/22 01/08/23 Rx multivitamin 1 tablet PO DAILY 01/01/23 01/08/23 History phentermine 15 mg capsule 15 mg PO DAILY #14 caps 01/01/23 01/08/23 Rx Patient hx anesthesia problems: none Family hx anesthesia problems: none Results Review: All pre-operative results and documents have been reviewed as part of the pre-operative evaluation. [facility] Past Medical History Medical History (Updated 01/08/23 @ 09:14 by Hal Sloan DO) Essential (primary) hypertension Hyperlipidemia, unspecified (02/02/15) Lipoma of left upper extremity RUBEN (obstructive sleep apnea) Skin lesion of left leg Trigger finger of left hand Type 2 diabetes mellitus without complications Surgical History Surgical History History of knee replacement procedure of left knee History of knee replacement procedure of right knee History of prostate surgery Family History Family History Sibling Alcoholism Cancer Father Cancer Other Hypertension Malignant neoplasm of prostate Social History Social History Smoking packs per day: 1 Smoking cigarettes per day: 20.0 Years smoked: 20 Smoking pack-years: 20.00 Smoking status: Former smoker Tobacco type: cigarettes Second hand tobacco smoke exposure: No Smoking end date: 06/11/89 Alcohol intake: former Alcohol use details: 10 YEARS Substance use: never Substance use type: does not use Current Housing: Decline to Answer Concerned About Future Housing: Decline to Answer Difficulty Paying Gas/Electric Bills: Decline to Answer Difficulty Paying for Meds: Decline to Answer Currently Unemployed: Decline to Answer Education: Decline to Answer Difficulty w/ Childcare or Family Care: Decline to Answer Living arrangements: with family Occupation/Education: retired Spiritual care concerns: No Anes - Eval Final PreProcedure Day of Procedure 01/08/23 09:13 Patient weight: obese Heart: regular rate and rhythm Lungs: clear to auscultation Airway: Mallampati scale class II Neurological: alert and oriented Last oral intake: >/= 8 hours ASA classification: III Emergent: no Anesthetic plan: proceed Anesthesia type and monitoring: general LMA and standard monitoring Results Review: All pre-operative results and documents have been reviewed as part of the pre-operative evaluation. Informed Consent: The patient's anesthetic plan and its attendant risks and benefits were discussed with the patient/family/POA. Questions were solicited and answers provided to the satisfaction of the patient/family/POA.
--- NOTE | 2023-01-08 10:11 | WPDHPUPDATE1 ---
History and Physical Update Update Date/Time: 01/08/23 10:11 History and Physical has been reviewed, including an updated exam of the patient. There are NO changes in the patient's condition. Risks, benefits, and alternatives have been discussed and questions answered. Patient agrees to proceed with procedure.
[2023-01-08] MEDS: ACETAMINOPHEN 500 MG TABLET 1000 MG PO (10:29)
[2023-01-08] MEDS: LACTATED RINGERS 1,000 ML 30 ML IV CONT (10:37)
[2023-01-08] MEDS: KETOROLAC 15 MG/ML VIAL (*BKC) IV PUSH (10:38)
[2023-01-08 10:46] LABS: Glucose Point of Care 100 mg/dl (65-105)
[2023-01-08] MEDS: ceFAZolin 3 GM/D5W 100 ML 100 ML IVPB (12:25)
[2023-01-08] MEDS: BUPIVACAINE/EPINEPHRINE 0.25% 10 ML VIAL INFILTRATE (12:47)
[2023-01-08 13:09] LABS: Glucose Point of Care 98 mg/dl (65-105)
--- NOTE | 2023-01-08 13:11 | W.PM.PROC2 ---
Procedure Note - Detailed Date of Procedure 01/08/23 Pre-op Diagnosis lipoma left distal forearm Post-op Diagnosis Same Procedure Performed excision lipoma left distal forearm Surgeon Lukas Hurst MD Philosophy Faculty Member Nick Pinzon Anesthesia General Description of Procedure The patient was identified proper site identified. He was taken to the operating room and transferred to the OR table placed him supine taking care to pad his torso extremities. After general anesthetic induction and intubation a nonsterile tourniquet placed on left arm. Left upper extremity was prepped and draped in usual sterile fashion. The extremity was exsanguinated and tourniquet inflated to 200 millimeters of mercury scar for about 6 minutes. Longitudinal incision was made over the lipoma. Subcutaneous tissue was bluntly dissected defined the margins of the lipoma which was excised. It was sent for histopathologic examination. Tourniquet was released. Hemostasis carried out. Wound is irrigated with sterile saline. Skin edges reapproximated with 4-0 Prolene subcuticular stitch and Steri-Strips were applied. Several cc of 1% lidocaine epinephrine solution was infiltrated in and around the surgical site. Sterile dressing was applied. Tolerated procedure well. There were no known intraoperative complications. Estimated blood loss was negligible. He received perioperative antibiotics. Estimated Blood Loss 3 Tourniquet Time 6 Drains No Packing No Pathology None sent Complications No immediate complications Condition Stable Disposition PACU [facility] Billing Surgery - Charge Forward: Surgery Billing ([id number])
== END 2023-01-08 15:10 | disposition home or self-care (01) ==
PROVIDERS: PCP Family Medicine; Visit Provider Orthopaedic Surgery
PROC: (CPT 25071; principal; 2023-01-08 12:00)
DX: D17.22 Benign lipomatous neoplasm of skin and subcutaneous tissue of left arm (principal); E11.9 Type 2 diabetes mellitus without complications; I10 Essential (primary) hypertension; E78.5 Hyperlipidemia, unspecified; G47.33 Obstructive sleep apnea (adult) (pediatric); Z87.891 Personal history of nicotine dependence; Z79.84 Long term (current) use of oral hypoglycemic drugs; E66.9 Obesity, unspecified; Z68.36 Body mass index [BMI] 36.0-36.9, adult
CPT/HCPCS: 25071; 36415; 80048; 82948; 88304; A9270; J0690; J1885; J2250; J2704; J3010; J7120

== ENCOUNTER 2023-10-26 09:31 | Outpatient (CLI) | payer OTHER, SELFPAY ==
--- NOTE | ~2023-10-26 | XR_ITS ---
Right Knee Technique: AP, lateral, and sunrise views were obtained. Clinical History: Pain Findings: No fracture or dislocation is seen. Right knee arthroplasty in place. Soft tissues are unre markable. No joint effusion is seen. Impression: No acute abnormality. Right knee arthroplasty in place, without evidence of hardware complication. Reviewed, dictated and finalized at location . Impression: No acute abnormality. Right knee arthroplasty in place, without evidence of hardware complication.
--- NOTE | ~2023-10-26 | XR_ITS ---
Left Knee Technique: AP, lateral, and sunrise views were obtained. Clinical History: Pain Findings: No fracture or dislocation is seen. Left knee arthroplasty in place, without evidence of corona rdware complication.. Soft tissues are unremarkable. No joint effusion is seen. Impression: No acute abnormality. Left knee arthroplasty in place. Reviewed, dictated and finalized at location M. Impression: No acute abnormality. Left knee arthroplasty in place.
== END 2023-10-26 09:32 ==
LOC: MICIMG 09:32
PROVIDERS: PCP Family Medicine; Visit Provider Family Medicine
DX: M25.561 Pain in right knee (principal); M25.562 Pain in left knee; Z96.653 Presence of artificial knee joint, bilateral
CPT/HCPCS: 73562

== ENCOUNTER 2024-05-20 11:41 | Outpatient (CLI) | payer OTHER, SELFPAY ==
--- NOTE | ~2024-05-20 | CT_ITS ---
CT soft tissue neck w con Ordering provider: Easton Nieto MD History: 74 years Male with . neoplasm of left palatine tonsil . Comparison: None. Technique: CT soft tissues neck was performed with contrast. . Automated exposure control and iterat scott reconstruction technique were employed. The dose-length product was 436.81 mGy-cm. 75 mL Omnipaqu e 350 was given IV.9 Findings: LOWER HEAD: The visualized brain parenchyma, optic globes/orbits and mastoids are normal. The visua lized paranasal sinuses shows bilateral maxillary sinus disease. SALIVARY GLANDS: Normal. THYROID: Normal. SUPRAHYOID DEEP SPACES: Small parapharyngeal lymph nodes are noted the largest in the left side measu res 8 mm. The largest in the right measures 7 mm. Small lymph nodes are also seen in the posterior tr iangles with the largest on the right side measures 7 mm. On the left 10 mm. CAROTID ARTERIES: Minimal bilateral atherosclerotic changes. JUGULAR VEINS: Normal. TONSILS: No definite enhancing masses seen. Slight prominence on the left side is not excluded. Possi bility of a slightly hypodense area is seen in the midportion of the left tonsil which measures 1.6 x 1.5 cm which may be a mass. Clinical evaluation advised. ORAL CAVITY: Partially obscured by dental amalgam but normal as visualized. PHARYNX, LARYNX AND TRACHEA: Patent and normal. No prevertebral soft tissue swelling. SUPERFICIAL SOFT TISSUES: Normal. No lymphadenopathy or neck mass. THORACIC INLET/VISUALIZED UPPER CHEST: Normal. SKELETAL: Kyphosis centered at the level of C4-C5. Age appropriate degenerative changes. IMPRESSION: Slight prominence of the left tonsil. Possibility of a mass cannot be excluded. Further evaluation ad vised. Reviewed, dictated and finalized at location A. N CHAIN OFFBEARER IMPRESSION: Slight prominence of the left tonsil. Possibility of a mass cannot be excluded. Further evaluation advised.
[2024-05-20 12:26] LABS: Estimated Glomerular Filt Rate > 60
== END 2024-05-20 11:42 | disposition home or self-care (01) ==
PROVIDERS: PCP Family Medicine; Visit Provider Family Medicine
DX: D49.0 Neoplasm of unspecified behavior of digestive system (principal)
CPT/HCPCS: 70491; Q9967

== ENCOUNTER 2024-08-11 15:06 | Outpatient (CLI) | payer OTHER, SELFPAY | END 2024-08-11 15:07 | disposition home or self-care (01) | PROVIDERS: PCP Family Medicine; Visit Provider Urology | DX: R39.15 Urgency of urination (principal) | CPT/HCPCS: 74176 ==